=== PATIENT | female | born 1945 | race Caucasian/White ===

== ENCOUNTER → 2016-12-16 | Outpatient (CLI) | payer OTHER ==
[~2016-12-16] VITALS: Ht 157.5 cm; Wt 62.6 kg
[~2016-12-16] MED LIST: DEXILANT60 MG PO; PRAVACHOL40 MG PO
== END | disposition home or self-care (01) ==
LOC: OPR 07:41 → EDSTATUS 08:00 → OPR 08:00
PROC: 0BBJ3ZX Excision of Left Lower Lung Lobe, Percutaneous Approach, Diagnostic (ICD-10-PCS; principal; 2016-12-16)
DX: J84.10 Pulmonary fibrosis, unspecified (principal); K21.9 Gastro-esophageal reflux disease without esophagitis; E04.1 Nontoxic single thyroid nodule; E78.5 Hyperlipidemia, unspecified; K44.9 Diaphragmatic hernia without obstruction or gangrene; K57.32 Diverticulitis of large intestine without perforation or abscess without bleeding; Z82.49 Family history of ischemic heart disease and other diseases of the circulatory system; Z80.0 Family history of malignant neoplasm of digestive organs
CPT/HCPCS: 71010; 77012; 85027; 85610; 85730; 88305; 88312; 88313; J2405; J3010

== ENCOUNTER 2016-12-17 20:45 | Emergency (ER) | payer OTHER ==
[~2016-12-17] VITALS: Ht 157.5 cm; Wt 64.0 kg
[2016-12-17 21:59] LABS: HEMATOCRIT 34.9 % (36.0-46.0); MCH 27.3 PG (29.0-34.0); MCHC 33.5 G/DL (30.0-36.0); MCV 81.5 FL (83-99); MEAN PLAT.VOLUME 9.1 uM^3 (9.5-12.4); PLATELET COUNT 247 K/uL (156-360); RBC DIS.WIDTH-CV 13.1 % (11.8-14.6); RBC DIS.WIDTH-SD 38.6 % (39-53); RED BLOOD COUNT 4.28 M/uL (3.80-5.20); WHITE BLOOD COUNT 8.5 K/uL (4.1-10.2)
[2016-12-17 22:12] LABS: CHLORIDE 106 mEq/L (99-109); POTASSIUM 3.7 mEq/L (3.7-5.4); SODIUM 139 mEq/L (136-147)
[2016-12-17 22:14] LABS: GLUCOSE 100 mg/dL (70-99)
[2016-12-17 22:15] LABS: ANION GAP 11 MEQ/L (2-14)
[2016-12-17 22:18] LABS: GFR ESTIMATE (CALCULATED) > 59 mL/min/
[2016-12-17 22:19] LABS: UREA NITROGEN (BUN) 12 mg/dL (9-23)
[2016-12-17 22:26] LABS: TROP-I INTERPRETATION NEGATIVE; TROPONIN-I < 0.01 ng/mL (0.0-0.30)
[2016-12-18] VITALS: BP 156/83
== END 2016-12-18 00:01 | disposition home or self-care (01) ==
LOC: EXP 20:45 → EME 20:45 → EXP 12-18 00:01
PROVIDERS: Emergency Medicine
DX: R07.89 Other chest pain (principal); R06.02 Shortness of breath; Z98.890 Other specified postprocedural states; R91.1 Solitary pulmonary nodule
CPT/HCPCS: 71020; 71275; 80048; 84484; 85027; 85379; 99281; 99284

== ENCOUNTER 2017-06-30 09:14 | Emergency (ER) | payer OTHER ==
[~2017-06-30] VITALS: Ht 157.5 cm; Wt 61.6 kg
[2017-06-30 10:07] LABS: HEMATOCRIT 37.5 % (36.0-46.0); HEMOGLOBIN 12.8 G/DL (11.9-15.5); MCH 27.9 PG (29.0-34.0); MCHC 34.1 G/DL (30.0-36.0); MCV 81.7 FL (83-99); PLATELET COUNT 262 K/uL (156-360); RBC DIS.WIDTH-CV 12.9 % (11.8-14.6); RBC DIS.WIDTH-SD 38.5 % (39-53); RED BLOOD COUNT 4.59 M/uL (3.80-5.20)
[2017-06-30 10:19] LABS: ALBUMIN 4.5 g/dL (3.2-4.8)
[2017-06-30 10:20] LABS: CHLORIDE 112 mEq/L (99-109); POTASSIUM 3.8 mEq/L (3.7-5.4); SODIUM 141 mEq/L (136-147)
[2017-06-30 10:22] LABS: GLUCOSE 94 mg/dL (70-99); TOTAL PROTEIN 7.3 g/dL (6.4-8.3)
[2017-06-30 10:24] LABS: TOTAL BILIRUBIN 0.8 mg/dL (0.0-1.0)
[2017-06-30 10:25] LABS: ALKALINE PHOSPHATASE 74 IU/L (3-129)
[2017-06-30 10:26] LABS: CREATININE 0.8 mg/dL (0.6-1.3); GFR ESTIMATE (CALCULATED) > 59 mL/min/
[2017-06-30 10:27] LABS: AST (GOT) 22 IU/L (2-34); UREA NITROGEN (BUN) 21 mg/dL (9-23)
[2017-06-30 10:29] LABS: ALT (GPT) 25 IU/L (3-49)
[2017-06-30 11:12] LABS: LIPASE 52 U/L (1.0-51.0)
[2017-06-30 11:39] LABS: TROP-I INTERPRETATION NEGATIVE; TROPONIN-I < 0.01 ng/mL (0.0-0.30)
[2017-06-30 11:39] LABS: APPEARANCE SL.HAZY ((CLEAR)); BILIRUBIN NEGATIVE; BLOOD MODERATE; COLOR YELLOW ((YELLOW)); GLUCOSE (STRIP) NEGATIVE; KETONES 5; LEUKOCYTES LARGE; NITRITE NEGATIVE; PROTEIN (STRIP) 30; SPECIFIC GRAVITY 1.031 (1.000-1.030); UROBILINOGEN 0.2 MG/DL (0.2-1.0)
[2017-06-30 11:46] LABS: BACTERIA RARE /HPF; EPITHELIAL CELLS 1+ /HPF; MUCUS 1+ /LPF; RED BLOOD CELLS 0-5 /HPF (0-5); UCUL ADDED? YES; WHITE BLOOD CELLS 20-30 /HPF (0-5)
[2017-06-30 14:06] VITALS: BP 133/68
[2017-06-30 15:04] LABS: C DIFF TOXIN NEGATIVE (NEGATIVE)
== END 2017-06-30 14:10 | disposition home or self-care (01) ==
LOC: EME 09:14
PROVIDERS: Nurse Practitioner Family
DX: K57.30 Diverticulosis of large intestine without perforation or abscess without bleeding (principal); K80.20 Calculus of gallbladder without cholecystitis without obstruction; K21.9 Gastro-esophageal reflux disease without esophagitis; Z88.5 Allergy status to narcotic agent; Z88.6 Allergy status to analgesic agent
CPT/HCPCS: 74177; 76705; 80053; 81003; 83630; 83690; 84484; 85027; 87086; 87493; 87506; 93005; 99281; 99285; J7120